=== PATIENT | male | born 1970 | race Caucasian/White ===

== ENCOUNTER 2021-05-20 07:44 | Outpatient (REF) | payer OTHER, SELFPAY ==
--- NOTE | ~2021-05-20 | XR_ITS ---
EXAMINATION: XR BOTH KNEES AP STANDING XR LEFT KNEE, 2 VIEWS CLINICAL INFORMATION: Pain. COMPARISON: None. TECHNIQUE: Standing AP view of both knees and lateral and sunrise views of the left knee. FINDINGS: Right knee: Mild medial compartment joint space narrowing and tiny marginal osteophytes. No osseous erosion. No fracture or dislocation. No abnormal soft tissue calcification. Left knee: Mild medial compartment joint space narrowing. Tiny medial and patellofemoral compartment marginal osteophytes. No osseous erosion. No fracture or dislocation. No significant joint effusion. No abnormal soft tissue calcification. XR/XR knee standing BI IMPRESSION: Right knee: Mild medial compartment osteoarthritis. Left knee: Mild medial and patellofemoral compartment osteoarthritis.
--- NOTE | ~2021-05-20 | XR_ITS ---
EXAMINATION: XR BOTH KNEES AP STANDING XR LEFT KNEE, 2 VIEWS CLINICAL INFORMATION: Pain. COMPARISON: None. TECHNIQUE: Standing AP view of both knees and lateral and sunrise views of the left knee. FINDINGS: Right knee: Mild medial compartment joint space narrowing and tiny marginal osteophytes. No osseous erosion. No fracture or dislocation. No abnormal soft tissue calcification. Left knee: Mild medial compartment joint space narrowing. Tiny medial and patellofemoral compartment marginal osteophytes. No osseous erosion. No fracture or dislocation. No significant joint effusion. No abnormal soft tissue calcification. XR/XR knee LT 2V IMPRESSION: Right knee: Mild medial compartment osteoarthritis. Left knee: Mild medial and patellofemoral compartment osteoarthritis.
== END 2021-05-20 07:45 | disposition home or self-care (01) ==
LOC: HO.HOSX 07:44
PROVIDERS: Visit Provider Orthopaedic Surgery
DX: S83.242A Other tear of medial meniscus, current injury, left knee, initial encounter (principal)
CPT/HCPCS: 73560; 73565

== ENCOUNTER 2021-06-02 09:15 | Outpatient (REF) | payer BC, SELFPAY ==
--- NOTE | ~2021-06-02 | MR_ITS ---
EXAMINATION: MR KNEE WITHOUT CONTRAST, LEFT CLINICAL INFORMATION: Tear of the medial meniscus and medial knee pain. Difficulty with flexion. COMPARISON: Radiograph dated 05/20/2021. TECHNIQUE: MRI of the knee without contrast was performed using routine sequences on a high-field scanner. FINDINGS: MENISCI: Medial Meniscus: There is a complex horizontal tear of the posterior horn and body of the medial meniscus along the meniscal undersurface. There is extrusion of an undersurface flap in the meniscotibial recess posteromedially. A small 6 mm parameniscal cyst is present posteromedially. Lateral Meniscus: Subtle free edge fraying is present at the posterior horn. No meniscal tears. LIGAMENTS: Cruciate: Intact. Collateral: Edema signal around the MCL is likely reactive to the underlying meniscal abnormality. Collateral ligaments are intact. EXTENSOR MECHANISM: Intact. ARTICULAR CARTILAGE/BONE: Patellofemoral Compartment: There is mild non-uniform chondral thinning in the patella at the medial facet and median ridge with full-thickness chondral fissuring. There are small moderate size marginal osteophytes. [id number] non-uniform articular cartilage loss is present in the trochlea with multiple foci of full-thickness chondral fissuring as well as articular cortical irregularity and subchondral cystic change. Medial Compartment: There is moderate non-uniform articular is loss of the medial femoral condyle with articular cortical irregularity and subchondral edema. Associated chondral fibrillation. Moderate-sized marginal osteophytes. [id number] non-uniform cartilage loss at the medial tibial plateau is most pronounced anteromedially with associated subchondral edema and subchondral cystic change. Lateral Compartment: Moderate-sized marginal osteophytes. There is full-thickness chondral fissuring at the posterior non-weightbearing surface of the lateral femoral condyle. JOINT FLUID AND BURSAE: Trace effusion. Small Chavez's cyst. MR/MR knee LT wo con IMPRESSION: 1. Complex degenerative horizontal flap tear at the posterior horn and body of the medial meniscus. 2. [id number] medial compartment osteoarthritis. More mild osteoarthritis in the lateral and patellofemoral compartments. 3. Trace joint effusion and small Chavez's cyst.
== END 2021-06-02 09:16 | disposition home or self-care (01) ==
LOC: HO.MRI 09:15
PROVIDERS: PCP Internal Medicine; Visit Provider Orthopaedic Surgery
DX: S83.242A Other tear of medial meniscus, current injury, left knee, initial encounter (principal)
CPT/HCPCS: 73721

== ENCOUNTER → 2021-06-12 09:28 | Outpatient (BNVA) | payer BC, SELFPAY | PROVIDERS: Visit Provider Orthopaedic Surgery ==

== ENCOUNTER 2021-06-17 05:57 | Day surgery (SDC) | payer BC, SELFPAY ==
--- NOTE | 2021-06-16 14:36 | HO.ANESPROP2 ---
Documented by User: Virginia Rudolph NP 06/16/21 14:37 HPI - Anesthesia Eval Consult details Narrative: 50yo M for Left Knee Arthroscopy [facility] Active Problems Active Problems: All Active Problems (Updated 06/14/21 @ 14:38 by Wesley Jimenez MD) Tear of medial meniscus of left knee (Acute) S/P total knee arthroplasty (Acute) Past Medical History Medical History Acid reflux High cholesterol Social History Social History Patient Tobacco Use Status: Former Tobacco user Use of substances other than those prescribed or required for medical reasons: No Are you DNR?: No Advance Directives: No Advance Directives Information Provided: Yes Advance Directives on File: No Recently lost weight without trying: No Nutrition Risks: No Nutritional Risk Current occupational status: employed 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 Meds Allergies Allergy/AdvReac Type Severity Reaction Status Date / Time codeine [CODEINE] Allergy Unknown NAUSEA/VOMI Verified 06/12/21 09:39 TING SULFA Allergy Unknown Redness of Uncoded 05/20/21 08:18 Skin/hot flash Active Medications: Current Medications Generic Name Dose Route Start Last Admin Trade Name Freq PRN Reason Stop Dose Admin Cefazolin Sodium/Dextrose 2 gm in 50 mls @ 100 mls/hr 06/17/21 07:21 Ancef IV 06/17/21 07:50 PREOP ONE Home Medications Medication Instructions Recorded Confirmed Last Taken Type omeprazole 10 mg capsule,delayed 10 mg PO DAILY 05/20/21 Unknown History release simvastatin 5 mg tablet 5 mg PO BEDTIME 05/20/21 Unknown History Exam Exam Date and Time: June 16, 2021 9766 Assessment and Plan Assessment Anesthesia Assessment: Chart Reviewed Documented by User: Amanda Baer MD 06/17/21 07:07 [facility] Past Medical History Medical History Acid reflux High cholesterol Family History Family history of problems with anesthesia: No Surgical History History of Problems with Anesthesia: No Social History Social History Patient Tobacco Use Status: Former Tobacco user Use of substances other than those prescribed or required for medical reasons: No Are you DNR?: No Advance Directives: No Advance Directives Information Provided: Yes Advance Directives on File: No Recently lost weight without trying: No Nutrition Risks: No Nutritional Risk Current occupational status: employed 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 Meds Allergies Allergy/AdvReac Type Severity Reaction Status Date / Time codeine [CODEINE] Allergy Unknown NAUSEA/VOMI Verified 06/12/21 09:39 TING SULFA Allergy Unknown Redness of Uncoded 05/20/21 08:18 Skin/hot flash Home Medications Medication Instructions Recorded Confirmed Last Taken Type omeprazole 10 mg capsule,delayed 10 mg PO DAILY 05/20/21 Unknown History release simvastatin 5 mg tablet 5 mg PO BEDTIME 05/20/21 Unknown History Exam Airway Mallampati Class: II TM Dist: >3cm Neck ROM: Full Assessment and Plan Assessment Anesthesia Assessment: Anesthesia Plan Discussed Final Anesthetic Review Family History of Problems with Anesthesia: No History of Problems with Anesthesia: No NPO: Yes ASA Class: II Final Preanesthetic Review: No Changes in Pt Med Stat, Meds/Allgs Chart Reviewed, Consent Obtained/Reviewed and Anes Risks/Benef Reviewed Patient Risk: Low Procedure Risk: Low Assessment/Block/Sedation in SS: Assess/Block/Sedation-SS Anesthetic Plan Anesthetic Plan: GA Disposition: Standard PACU
[2021-06-17] VITALS (7 sets, daily range): BP systolic 117–143; BP diastolic 79–93; PULSE 79–94; RESP 16; TEMP 36.3–36.5; O2SAT 94–97; BMI 34.4
[2021-06-17] MEDS: Lactated Ringers 1,000 ML 100 ML IVCONT (06:37)
--- NOTE | 2021-06-17 07:32 | MHC.SHP ---
Pre-Procedural Eval Section A Date of Service: 06/17/21 The patient is an INPATIENT: No Changes since office visit: Yes Patient answered all questions; No Cold of Flu in the past 2 weeks, No New Medical Problems and No Changes in Medication The History & Physical has been completed within 30 days and I have reviewed it.: Yes Section B Chief Complaint: meniscus tear Allergies: Allergies Allergy/AdvReac Type Severity Reaction Status Date / Time codeine [CODEINE] Allergy Unknown NAUSEA/VOMI Verified 06/12/21 09:39 TING SULFA Allergy Unknown Redness of Uncoded 05/20/21 08:18 Skin/hot flash Plan I have reviewed the history and physical and performed a pertinent physical examination on my patient. No changes have occurred unless specified.
--- NOTE | 2021-06-17 08:15 | PM.OP ---
Brief Operative Note Date of Service: 06/17/21 Pre-op diagnosis: left knee mmt Post-op diagnosis: other (1) left knee mmt 2) left knee plica 3)left knee oa) Procedure: Left knee with partial medial meniscectomy, plica resection and chondroplasty Implants: none Surgeon: Wesley Jimenez MD Anesthesia: GETA and local Was an Teletypewriter Operator used for this Procedure?: No Estimated blood loss (mL): 5 Pathology: none sent Condition: stable Disposition: PACU
--- NOTE | 2021-06-17 08:19 | W.PM.OPN ---
Operative Note Operative Note Date of Service: 06/17/21 Narrative: Pre-op diagnosis: left knee mmt Post-op diagnosis: other (1) left knee mmt 2) left knee plica 3)left knee oa Procedure: Left knee with partial medial meniscectomy, plica resection and chondroplasty Implants: none Surgeon: Wesley Jimenez MD Anesthesia: GETA and local Was an [employer] Service Supply Distributor used for this Procedure?: No Estimated blood loss (mL): 5 Pathology: none sent Condition: stable Disposition: PACU Procedure in detail: Patient was brought to the operating room placed supine on the arthroscopic table and prepped and draped in standard sterile fashion. A time-out was called to identify proper site proper procedure proper surgeon and IV antibiotics per weight were administered. I began by exsanguinating the limb and insufflating tourniquet to 300 mm Hg. Then made a standard anterolateral stab incision. The knee was insufflated with saline and a 30 degree arthroscope was placed. There was G1 fibrillations of the patella and a large G4 trochlear lesion extending into the MFC. There heather a large medial abrading plica. The pouch and gutters were clean. I descended into the medial compartment where I made my medial portal under direct visualization. There was obvious of complex tear of the body and posterior horn of the medial meniscus. There were G2/3 changes of the weight bearing portion of the MFC and G2 changes of the medial plateau. The root was intact. I used a combination of biter shaver and cautery to remove the plica and then the unstable portions of the meniscus. Approximally 40% meniscal volume was removed. Once I was happy with this the ACL was examined and found to be intact and the lateral compartment was normal. I then removed all instrumentation and closed the portals with skin glue. 25 mL of 2% Marcaine with epinephrine was injected into the joint and the surrounding soft tissues. Patient was then placed in sterile dressing, extubated brought recovery room stable condition. There were no known complications.
[2021-06-17] MEDS: Ondansetron ODT 4 MG TAB.RAPDIS TRANSLINGU (09:30)
== END 2021-06-17 10:30 | disposition home or self-care (01) ==
PROVIDERS: PCP Internal Medicine; Visit Provider Orthopaedic Surgery
PROC: (CPT 29870; principal; 2021-06-17 07:30)
DX: S83.232A Complex tear of medial meniscus, current injury, left knee, initial encounter (principal); M67.52 Plica syndrome, left knee; M17.12 Unilateral primary osteoarthritis, left knee; M25.462 Effusion, left knee; M71.22 Synovial cyst of popliteal space [Baker], left knee; X58.XXXA Exposure to other specified factors, initial encounter; Y93.9 Activity, unspecified; Y92.9 Unspecified place or not applicable; Y99.8 Other external cause status
CPT/HCPCS: 29881; J0171; J0690; J1100; J1885; J2250; J2405; J3010

== ENCOUNTER → 2021-06-25 09:18 | Outpatient (BNVA) | payer BC, SELFPAY | PROVIDERS: PCP Internal Medicine; Visit Provider Physician Assistant ==

== ENCOUNTER 2021-06-29 07:54 | Outpatient (RCR) | payer BC, SELFPAY ==
--- NOTE | 2021-06-29 08:53 | MHC.PT.EP ---
[facility] [place] [facility] [place] [facility] [place] [facility] [address] Niurka Arroyo [address] [phone] F: [phone] F: [phone] F: [phone] F: [phone] Physical Therapy Plan of Care Date of Evaluation: Date of Surgery: 06/17/21 Diagnosis: Tear of L medial meniscus Assessment: 50 y/o M is s/p L knee with partial medial meniscectomy, plica resection and chondroplasty on 06/17/21. He reports feeling great already and reports minimal limitations. He is able to walk and perform job duties now. Reports minimal-no difficulty with descending stairs but that has already improved significantly since surgery. Examination shows full knee AROM, B LE strength WNL, gait pattern WNL, able to ascend/descend stairs in step through pattern without railing, and painfree. Educated, performed and distributed HEP with review of ice for pain management when needed and avoiding deep squats at this time while still healing from surgery. He would not like to f/u with further PT as he is RTW and is feeling better. Frequency and Duration: The patient will be seen Short Term Goals: D/c to [facility] Goals: Treatment Plan: Modalities to reduce pain, spasms and effusion. Manual therapy to restore motion and function. Therapeutic exercise to improve strength and flexibility. Neuromuscular re-education for posture and balance. Therapeutic activities to return to functional activities of daily living. Electronically signed by: Indy Robert PT Please sign and return to therapist. Thank you for your referral.
--- NOTE | 2021-06-29 08:58 | MHC.PT.DC ---
[facility] [place] [facility] [place] [facility] [place] [facility] [address] Niurka Arroyo [address] [phone] F: [phone] F: [phone] F: [phone] F: [phone] Physical Therapy Discharge Report Diagnosis: Tear of L medial meniscus Date of Surgery: 06/17/21 Date of Evaluation: 06/29/21 Date of Discharge: 06/29/21 Treatments to Date: 1 Cancellations to Date: 0 No Shows to Date: 0 Discharge Status: Independent with HEP Patient Elected to Stop Discharge Summary: He reports feeling great already and reports minimal limitations with mild-no difficulty descending stairs. He would like HEP and then to be d/c . Examination shows full knee AROM, B LE strength WNL, gait pattern WNL, able to ascend/descend stairs in step through pattern without railing, and painfree. Educated, performed and distributed HEP with review of ice for pain management when needed and avoiding deep squats at this time while still healing from surgery. He would not like to f/u with further PT as he is RTW and is feeling better. D/c at this time. Electronically signed by: Indy Robert PT Please sign and return to therapist. Thank you for your referral.
== END 2021-06-29 08:58 | disposition home or self-care (01) ==
LOC: HO.PTCHIC 07:54
PROVIDERS: PCP Internal Medicine; Visit Provider Physician Assistant
DX: S83.242A Other tear of medial meniscus, current injury, left knee, initial encounter (principal)
CPT/HCPCS: 97110; 97161; 97530